=== PATIENT | male | born 1975 | race Caucasian/White ===

== ENCOUNTER 2017-07-28 15:33 | Emergency (ER) | payer BC ==
[2017-07-28] MEDS ORDERED: SODIUM CHLORIDE 0.9% 1,000 ML IV STA (17:31)
[2017-07-28] MEDS ORDERED: METOCLOPRAMIDE 5 MG/ML 2 ML VIAL IVP STA (17:31)
[2017-07-28] MEDS ORDERED: diphenhydrAMINE 50 MG/ML 1 ML VIAL IVP STA (17:31)
--- NOTE | 2017-07-28 17:39 | ED ---
General Adult HPI - General Chief complaint: Headache Stated complaint: Headache, Facial Numbness Time Seen by Provider: 07/28/17 17:15 Source: patient, RN notes reviewed Mode of arrival: ambulatory Limitations: no limitations - History of Present Illness Initial comments: Patient 42-year-old male presented to the emergency room today with chief complaint of a headache that started yesterday. Patient states that as a numbness and pressure like pain to the top and right side of his head. Patient does admit that he took ibuprofen for the pain yesterday which did not give much relief. he has not taken anything today. Does admit that he feels pain started back radiating up to the front. States very sensitive over the right christianity oral area. Patient denies any injury or trauma. Patient admits that he had some episodes of nausea vomiting yesterday. States at times still nauseous today. Patient denies any other complaints or symptoms. States never had similar headaches in the past. Patient denies any recent fever, chills, shortness of breath, chest pain, back pain, abdominal pain, numbness or tingling , dysuria or hematuria, constipation or diarrhea, visual changes, or any other complaints. - Related Data Home Medications Medication Instructions Recorded Confirmed Ibuprofen [Advil] 600 mg PO Q8HR PRN 07/28/17 07/28/17 Allergies Allergy/AdvReac Type Severity Reaction Status Date / Time meperidine HCl [From Demerol] Allergy Dyspnea Verified 07/28/17 17:16 Review of Systems ROS Statement: Those systems with pertinent positive or pertinent negative responses have been documented in the HPI. ROS Other: All systems not noted in ROS Statement are negative. Past Medical History Past Medical History: No Reported History History of Any Multi-Drug Resistant Organisms: None Reported Past Surgical History: Hernia Repair Past Psychological History: No Psychological Hx Reported Smoking Status: Never smoker Past Alcohol Use History: None Reported Past Drug Use History: None Reported General Exam - General Exam Comments Initial Comments: General: The patient is awake and alert, in no distress, and does not appear acutely ill. Eye: Pupils are equal, round and reactive to light, extra-ocular movements are intact. No nystagmus. There is normal conjunctiva bilaterally. No signs of icterus. Ears, nose, mouth and throat: There are moist mucous membranes and no oral lesions. Neck: The neck is supple, there is no tenderness or JVD. Negative Kernig's and Brudzinski's Cardiovascular: There is a regular rate and rhythm. No murmur, rub or gallop is appreciated. Respiratory: Lungs are clear to auscultation, respirations are non-labored, breath sounds are equal. No wheezes, stridor, rales, or rhonchi. Musculoskeletal: Normal ROM, no tenderness. Strength 5/5. Sensation intact. Pulses equal bilaterally 2+. Neurological: A&O x 3. CN II-XII intact, There are no obvious motor or sensory deficits. Coordination appears grossly intact. Speech is normal. Skin: Skin is warm and dry and no rashes or lesions are noted. tender palpation of the temp oral area. Psychiatric: Cooperative, appropriate mood & affect, normal judgment. Limitations: no limitations Course Vital Signs 07/28/17 07/28/17 15:48 17:45 Temperature 97.9 F Pulse Rate 63 59 L Respiratory 20 18 Rate Blood Pressure 135/88 132/68 O2 Sat by Pulse 99 99 Oximetry - Reevaluation(s) Reevaluation #1: 07/28/17 18:59 Patient reexamined at this time shows no signs of distress. He does admit that his headache has improved quite a bit. He states currently rates a 4/10 at this time. He was given Reglan, Benadryl and IV fluids. Patient's CT of the head and neck show no acute abnormalities. Patient's CBC in CMP currently reviewed and are unremarkable. Awaiting test results CRP and sed rate at this time. Medical Decision Making - Medical Decision Making Patient reexamined at this time shows no signs of distress. His CT is negative. Sed rate and CRP negative. Labs been reviewed unremarkable. Patient feeling much better after medications. It was discussed with patient about possible shingles rash does erupt. At this time patient will be discharged home advised to continue with his Advil for any rebound headache. - Lab Data Result diagrams: 07/28/17 17:50 07/28/17 17:50 Lab Results 07/28/17 07/28/17 Range/Units 17:50 17:50 WBC 7.4 (3.8-10.6) k/uL RBC 5.22 (4.30-5.90) m/uL Hgb 15.5 (13.0-17.5) gm/dL Hct 45.1 (39.0-53.0) % MCV 86.5 (80.0-100.0) fL MCH 29.8 (25.0-35.0) pg MCHC 34.4 (31.0-37.0) g/dL RDW 12.7 (11.5-15.5) % Plt Count 232 (150-450) k/uL Neutrophils % 76 % Lymphocytes % 16 % Monocytes % 6 % Eosinophils % 1 % Basophils % 0 % Neutrophils # 5.7 (1.3-7.7) k/uL Lymphocytes # 1.2 (1.0-4.8) k/uL Monocytes # 0.5 (0-1.0) k/uL Eosinophils # 0.1 (0-0.7) k/uL Basophils # 0.0 (0-0.2) k/uL ESR 9 (0-15) mm/hr Sodium 143 (137-145) mmol/L Potassium 4.3 (3.5-5.1) mmol/L Chloride 102 (98-107) mmol/L Carbon Dioxide 25 (22-30) mmol/L Anion Gap 16 mmol/L BUN 8 L (9-20) mg/dL Creatinine 0.80 (0.66-1.25) mg/dL Est GFR (CKD-EPI)AfAm >90 (>60 ml/min/1.73 sqM) Est GFR (CKD-EPI)NonAf >90 (>60 ml/min/1.73 sqM) Glucose 108 H (74-99) mg/dL Calcium 10.0 (8.4-10.2) mg/dL Total Bilirubin 0.5 (0.2-1.3) mg/dL AST 27 (17-59) U/L ALT 24 (21-72) U/L Alkaline Phosphatase 70 (38-126) U/L C-Reactive Protein <5.0 (<10.0) mg/L Total Protein 7.2 (6.3-8.2) g/dL Albumin 4.8 (3.5-5.0) g/dL Disposition Clinical Impression: Atypical migraine Disposition: HOME SELF-CARE Condition: Good Instructions: Migraine Headache (ED) Additional Instructions: Please use medication as discussed. Please follow-up with family doctor in the next 2 days of symptoms have not improved. Please return to emergency room if the symptoms increase or worsen or for any other concerns. Is patient prescribed a controlled substance at d/c from ED?: No Referrals: Bryn Banuelos MD [Primary Care Provider] - 1-2 days Time of Disposition: 19:48
[2017-07-28 17:46] VITALS: RESP 18
--- NOTE | 2017-07-28 18:15 | CT ---
EXAMINATION TYPE: CT brain salomón alaniz DATE OF EXAM: 07/28/2017 COMPARISON: NONE HISTORY: Right sided occipital area numbness, headache CT DLP: 2158 mGycm Automated exposure control for dose reduction was used. TECHNIQUE: CT scan of the head and cervical spine are performed without contrast. FINDINGS: Ventricles of normal size. There is no mass effect nor midline shift. There is no sign of intracranial hemorrhage. The calvarium is intact. Cervical vertebra show some straightening. There is mild anterior spurring at C5-6 C6-7 with minimal disc space narrowing. There is no compression fracture. The skull base is intact. Facet joints are in tact. IMPRESSION: Negative CT scan of the brain. Minor degenerative disc changes in the lower cervical spine. No fracture.
[2017-07-28 18:19] LABS: Basophils % (A) 0 %; Eosinophils # (A) 0.1 k/uL (0-0.7); Eosinophils % (A) 1 %; HCT 45.1 % (39.0-53.0); HGB 15.5 gm/dL (13.0-17.5); Lymphocytes # (A) 1.2 k/uL (1.0-4.8); Lymphocytes % (A) 16 %; MCH 29.8 pg (25.0-35.0); MCHC 34.4 g/dL (31.0-37.0); MCV 86.5 fL (80.0-100.0); Mean Platelet Volume 7.2; Monocytes # (A) 0.5 k/uL (0-1.0); Monocytes % (A) 6 %; Neutrophils # (A) 5.7 k/uL (1.3-7.7); Neutrophils % (A) 76 %; Platelet Count 232 k/uL (150-450); RBC 5.22 m/uL (4.30-5.90); RDW 12.7 % (11.5-15.5); WBC 7.4 k/uL (3.8-10.6)
[2017-07-28 18:31] LABS: ALT 24 U/L (21-72); AST 27 U/L (17-59); Albumin 4.8 g/dL (3.5-5.0); Alkaline Phosphatase 70 U/L (38-126); Anion Gap 16 mmol/L; Blood Urea Nitrogen 8 mg/dL (9-20); C Reactive Protein <5.0 mg/L (<10.0); Carbon Dioxide 25 mmol/L (22-30); Chloride 102 mmol/L (98-107); Glucose 108 mg/dL (74-99); Potassium 4.3 mmol/L (3.5-5.1); Sodium 143 mmol/L (137-145); Total Bilirubin 0.5 mg/dL (0.2-1.3); Total Protein 7.2 g/dL (6.3-8.2)
[2017-07-28] MEDS ORDERED: KETOROLAC 30 MG/ML 1 ML VIAL IVP STA (18:59)
[2017-07-28 19:25] LABS: Erythrocyte Sedimentation Rate 9 mm/hr (0-15)
[2017-07-28 20:15] VITALS: BP 137/66; PULSE 64; TEMP 98
== END 2017-07-28 20:23 | disposition home or self-care (01) ==
LOC: EC 15:33
DX: G43.909 Migraine, unspecified, not intractable, without status migrainosus (principal); Z88.5 Allergy status to narcotic agent
CPT/HCPCS: 36415; 80053; 85652; 85025; 86140; 72125; 70450; 99284; 96374; 96375 ×2; 96361 ×3; J1200; J2765; J1885

== ENCOUNTER → 2018-11-01 | Outpatient (CLI) | payer BC ==
--- NOTE | 2018-11-01 09:55 | US ---
EXAMINATION TYPE: US abdomen complete DATE OF EXAM: 11/01/2018 COMPARISON: NONE CLINICAL HISTORY: 43-year-old male R10.11 RUQ Pain, R07.9 Chest Pain. Epigastric pain. Limited exam d ue to overlying bowel gas TECHNIQUE: Multiple sonographic images of the abdomen are obtained. FINDINGS: EXAM MEASUREMENTS: Liver Length: 17.0 cm Gallbladder Wall: 0.1 cm CBD: 0.6 cm Spleen: 11.8 cm Right Kidney: 10.1 x 5.1 x 5.8 cm Left Kidney: 10.2 x 5.5 x 4.7 cm Pancreas: Obscured by bowel gas Liver: Diffusely heterogeneous. Portal vein appears prominent measuring 1.6 cm of questionable clini ricardo significance in the absence of portal venous hypertension. Gallbladder: wnl Evidence for sonographic Hadley's sign: No CBD: Measuring upper limits of normal. Distal portion obscured by bowel gas Spleen: wnl Right Kidney: No hydronephrosis. Left Kidney: No hydronephrosis. Upper IVC: wnl as visualized Abd Aorta: wnl as visualized IMPRESSION: 1. Borderline hepatomegaly (17.0 cm) with heterogeneous appearance to the liver. Correlate for underl leonel nonspecific hepatocellular disease. 2. Prominent size to the main portal vein at 1.6 cm is of questionable clinical significance in the a bsence of portal venous hypertension. Again, clinically correlate. 3. Bile duct borderline in caliber at 6 mm. Correlate with alkaline phosphatase and bilirubin levels to exclude early biliary obstruction.
--- NOTE | 2018-11-01 09:55 | XR ---
EXAMINATION TYPE: XR chest 2V DATE OF EXAM: 11/01/2018 COMPARISON: None HISTORY: 43-year-old male right upper quadrant and chest pain TECHNIQUE: Frontal and lateral views FINDINGS: Heart normal size. Aorta and pulmonary vasculature within normal limits. Strandy atelectasis in the l ower lungs. No consolidation or pleural effusion. IMPRESSION: No acute cardiopulmonary process.
--- NOTE | 2018-11-01 12:35 | ECHOS ---
STRESS ECHOCARDIOGRAM INDICATIONS: Chest pain. MEDICATIONS: Aspirin. BASELINE HEART RATE: 57 BASELINE BLOOD PRESSURE: 119/49 MAXIMUM HEART RATE: 160 MAXIMUM BLOOD PRESSURE: 197/83 85% MPHR: 150 100% MPHR: 177 METS: 11.9 MAXIMUM STAGE REACHED: 4 TOTAL EXERCISE TIME: 10:15 CLINICAL INFORMATION: Baseline EKG revealed normal sinus rhythm without significant ST changes. Patient walked on standard Fabian protocol for 10 minutes 15 seconds, achieved a maximal heart rate of 160 beats per minute, developed fatigue and shortness of breath but did not have any angina or arrhythmia. EKG did not reveal any ST-segment changes to indicate ischemia. By EKG criteria, this is an unremarkable stress test with good exercise capacity. Baseline echo images revealed normal wall motion and wall thickening of all segments. At peak exercise, there was good augmentation of different wall motion and wall thickening of all segments suggesting that there is no evidence of stress-induced ischemia on this study. FINAL IMPRESSION: 1. By EKG criteria, this is a negative stress test without any evidence of ischemia. Nonspecific upsloping ST-segment changes were noted. 2. Normal stress echocardiogram with excellent exercise capacity. There was no evidence of ischemia on this study. MMODL / IJN: [id number] /
== END | disposition home or self-care (01) ==
LOC: RADUSMAIN 08:20
PROVIDERS: ATTEND Family Medicine
DX: R06.09 Other forms of dyspnea (principal); R10.11 Right upper quadrant pain
CPT/HCPCS: 71046; 76700; 93351

== ENCOUNTER 2019-09-26 15:04 | Observation (INO) | payer BC ==
--- NOTE | 2019-09-26 15:28 | ED ---
General Adult HPI - General Chief complaint: Neuro Symptoms/Deficit Stated complaint: L Side Numbness Time Seen by Provider: 09/26/19 15:12 Source: patient Mode of arrival: ambulatory Limitations: no limitations - History of Present Illness Initial comments: 44-year-old male with history of previous shingles infection, lifelong non- smoker presenting for left facial left arm tingling. Patient states that Thursday of last week he developed a headache he states he had left-sided facial tingling at that time and symptoms felt similar to when he developed a herpes zoster infection. Patient states he also stated that he had some blurred vision in the left eye in comparison the right that has been intermittent since. Patient states he has had on-and-off headaches with associated vomiting. He states that he vomited on Thursday with a headache as well as . He states he does not currently have a headache. Patient denies any complete vision loss or visual field deficits denies diplopia. Patient denies any change the vision of the right eye. Patient denies experiencing the visual changes in the past. Patient denies noting any speech changes he denies any weakness of the upper or lower extremities states actually 7 hours ago after running he had the same tingling sensation that was found in the face and the left arm. He states that there is no sensation deficit or difference it just feels "shawn" patient denies neck pain, chest pain, back pain, SOB. Patient states that he has no been dizzy or felt presyncopal. Patient denies chest pressure, jaw pain or arm pain. Denies current nausea. Denies history of brain aneurysm, family history of brain aneursym or AVM. Family history of premature CAD. Patient has no additional complaints. BP elevated on arrival. I immediately after completion of history and exam, consulted my attending provider Dr Garcia. - Related Data Home Medications Medication Instructions Recorded Confirmed Aspirin EC [Ecotrin Low Dose] 81 mg PO DAILY 09/26/19 09/26/19 Multivitamins, Thera [Multivitamin 1 tab PO DAILY 09/26/19 09/26/19 (formulary)] Allergies Allergy/AdvReac Type Severity Reaction Status Date / Time meperidine HCl [From Demerol] Allergy Dyspnea Verified 09/26/19 17:03 Review of Systems ROS Statement: Those systems with pertinent positive or pertinent negative responses have been documented in the HPI. ROS Other: All systems not noted in ROS Statement are negative. Past Medical History Past Medical History: No Reported History Additional Past Medical History / Comment(s): shingles History of Any Multi-Drug Resistant Organisms: None Reported Past Surgical History: Hernia Repair Past Psychological History: No Psychological Hx Reported Smoking Status: Never smoker Past Alcohol Use History: Occasional Past Drug Use History: None Reported General Exam - General Exam Comments Initial Comments: General: The patient is awake and alert, in no distress Eye: +3 mm pupils are equal, round and reactive to light, extra-ocular mo vements are intact. No nystagmus. There is normal conjunctiva bilaterally. No signs of icterus. Ears, nose, mouth and throat: There are moist mucous membranes and no oral lesions. Neck: The neck is supple, there is no tenderness or JVD. Cardiovascular: There is a regular rate and rhythm. No murmur, rub or gallop is appreciated. Respiratory: Lungs are clear to auscultation, respirations are non-labored, breath sounds are equal. No wheezes, stridor, rales, or rhonchi. Gastrointestinal: Soft, non-distended, non-tender abdomen without masses or organomegaly noted. There is no rebound or guarding present. Musculoskeletal: Normal ROM, no tenderness. Strength 5/5. Sensation intact. Radial pulses equal bilaterally 2+. Neurological: A&O x 3. CN II-XII intact, memory intact to immediately, intermediate and vermin exterminator recall. Able to follow simple verbal. Able to name a common object (pen). High quality, labial (pa) and lingual (la) speech. Low quality posterior pharynx/larynx (ga) voice sounds. Able to express general knowledge. No hemineglect or inattention noted. Finger agnosia (-) and spatially oriented (identified L index finger touched R shoulder with L index finger). Light touch present over the face, chest, abdomen, back, UE bilaterally, and LE bilaterally. Able to localize point during point localization b/l and extinction. No visible bulk atrophy, hypertrophy, fasciculations, or myoclonus of the UE or LE b/l. Full PROM in UE and LE b/l. Bilateral muscle strength 5/5 for the following muscles: deltoid, biceps, triceps, brachioradialis, wrist extensors/flexor, hip flexor, hip abduc tors/adductors, hamstrings, quadriceps, feet dorsiflexors/plantar flexors. Finger to nose, finger to the examiners finger, and heel to samaniego coordinated and accurate b/l. Coordinated and even demonstration of hand flip, finger to thumb, and toe tap b/l. Gait is coordinated and even in stride.(-) Romberg. (-) pronator drift. No nuchal rigidity. Skin: Skin is warm and dry and no rashes or lesions are noted. Psychiatric: Cooperative, appropriate mood & affect, normal judgment. Limitations: no limitations Course Vital Signs 09/26/19 09/26/19 09/26/19 15:06 15:30 16:00 Temperature 98.5 F Pulse Rate 72 71 74 Respiratory 18 18 18 Rate Blood Pressure 154/103 161/96 149/71 O2 Sat by Pulse 99 97 98 Oximetry 09/26/19 09/26/19 09/26/19 16:30 17:00 17:30 Temperature Pulse Rate 63 61 57 L Respiratory 18 18 18 Rate Blood Pressure 127/86 118/77 115/62 O2 Sat by Pulse 97 97 97 Oximetry 09/26/19 18:00 Temperature Pulse Rate 71 Respiratory 18 Rate Blood Pressure 104/66 O2 Sat by Pulse 97 Oximetry - Reevaluation(s) Reevaluation #1: On reevaluation left are parathesias had resolved, face remains-- 09/26/19 1730 Reevaluation #2: Dr. Pierre was consulted in the ER, I spoke with her in person she states she will place order for MRI and see patient in the morning. 09/26/19 EKG Findings - EKG Comments: EKG Findings:: Ventricular rate 76 bpm, MS interval 172 ms, QRS jew 96 no seconds, QT/QTC 48/459 ms. This is normal sinus. There is no ST elevation or depression. Nonspecific to T wave abnormality otherwise normal appearing EKG Medical Decision Making - Medical Decision Making 44-year-old male presented for left face and arm paresthesia no loss of sensation or weakness. History of on-and-off headaches and some nausea. CT without contrast no acute abnormalities identified no abnormalities of the CT angiography such as aneurysm. Patient will have an MRI performed to rule out mass. Patient paresthesia left arm resolved. EKG no acute findings troponin negative patient denied any chest pain or shortness of breath. Patient is agreeable to admission for further evaluation and monitoring. Dr. Garcia is agreeable to care plan and admission. - Lab Data Result diagrams: 09/26/19 15:25 09/26/19 15:32 Lab Results 09/26/19 09/26/19 09/26/19 Range/Units 15:25 15:32 15:32 WBC 4.4 (3.8-10.6) k/uL RBC 4.86 (4.30-5.90) m/uL Hgb 14.6 (13.0-17.5) gm/dL Hct 44.7 (39.0-53.0) % MCV 92.0 (80.0-100.0) fL MCH 30.1 (25.0-35.0) pg MCHC 32.7 (31.0-37.0) g/dL RDW 12.5 (11.5-15.5) % Plt Count 168 (150-450) k/uL Neutrophils % 58 % Lymphocytes % 34 % Monocytes % 6 % Eosinophils % 1 % Basophils % 0 % Neutrophils # 2.5 (1.3-7.7) k/uL Lymphocytes # 1.5 (1.0-4.8) k/uL Monocytes # 0.3 (0-1.0) k/uL Eosinophils # 0.0 (0-0.7) k/uL Basophils # 0.0 (0-0.2) k/uL PT 10.0 (9.0-12.0) sec INR 1.0 (<1.2) APTT 22.8 (22.0-30.0) sec Sodium (137-145) mmol/L Potassium (3.5-5.1) mmol/L Chloride (98-107) mmol/L Carbon Dioxide (22-30) mmol/L Anion Gap mmol/L BUN (9-20) mg/dL Creatinine (0.66-1.25) mg/dL Est GFR (CKD-EPI)AfAm (>60 ml/min/1.73 sqM) Est GFR (CKD-EPI)NonAf (>60 ml/min/1.73 sqM) Glucose (74-99) mg/dL Calcium (8.4-10.2) mg/dL Total Bilirubin (0.2-1.3) mg/dL AST (17-59) U/L ALT (4-49) U/L Alkaline Phosphatase (38-126) U/L Troponin I (0.000-0.034) ng/mL Total Protein (6.3-8.2) g/dL Albumin (3.5-5.0) g/dL Urine Color Yellow Urine Appearance Clear (Clear) Urine pH 6.0 (5.0-8.0) Ur Specific [place] 1.005 (1.001-1.035) Urine Protein Negative (Negative) Urine Glucose (UA) Negative (Negative) Urine Ketones Negative (Negative) Urine Blood Negative (Negative) Urine Nitrite Negative (Negative) Urine Bilirubin Negative (Negative) Urine Urobilinogen <2.0 (<2.0) mg/dL Ur Leukocyte Esterase Negative (Negative) Urine RBC 1 (0-5) /hpf Urine Mucus Rare H (None) /hpf 09/26/19 09/26/19 Range/Units 15:32 15:32 WBC (3.8-10.6) k/uL RBC (4.30-5.90) m/uL Hgb (13.0-17.5) gm/dL Hct (39.0-53.0) % MCV (80.0-100.0) fL MCH (25.0-35.0) pg MCHC (31.0-37.0) g/dL RDW (11.5-15.5) % Plt Count (150-450) k/uL Neutrophils % % Lymphocytes % % Monocytes % % Eosinophils % % Basophils % % Neutrophils # (1.3-7.7) k/uL Lymphocytes # (1.0-4.8) k/uL Monocytes # (0-1.0) k/uL Eosinophils # (0-0.7) k/uL Basophils # (0-0.2) k/uL PT (9.0-12.0) sec INR (<1.2) APTT (22.0-30.0) sec Sodium 140 (137-145) mmol/L Potassium 3.8 (3.5-5.1) mmol/L Chloride 106 (98-107) mmol/L Carbon Dioxide 24 (22-30) mmol/L Anion Gap 10 mmol/L BUN 10 (9-20) mg/dL Creatinine 0.94 (0.66-1.25) mg/dL Est GFR (CKD-EPI)AfAm >90 (>60 ml/min/1.73 sqM) Est GFR (CKD-EPI)NonAf >90 (>60 ml/min/1.73 sqM) Glucose 104 H (74-99) mg/dL Calcium 9.6 (8.4-10.2) mg/dL Total Bilirubin 0.5 (0.2-1.3) mg/dL AST 59 (17-59) U/L ALT 64 H (4-49) U/L Alkaline Phosphatase 70 (38-126) U/L Troponin I <0.012 (0.000-0.034) ng/mL Total Protein 8.1 (6.3-8.2) g/dL Albumin 5.2 H (3.5-5.0) g/dL Urine Color Urine Appearance (Clear) Urine pH (5.0-8.0) Ur Specific [place] (1.001-1.035) Urine Protein (Negative) Urine Glucose (UA) (Negative) Urine Ketones (Negative) Urine Blood (Negative) Urine Nitrite (Negative) Urine Bilirubin (Negative) Urine Urobilinogen (<2.0) mg/dL Ur Leukocyte Esterase (Negative) Urine RBC (0-5) /hpf Urine Mucus (None) /hpf Disposition Clinical Impression: Arm paresthesia, left, Blurred vision, left eye, Facial paresthesia, Hx of headache Disposition: ADMITTED IP TO THIS [facility] Condition: Stable Is patient prescribed a controlled substance at d/c from ED?: No Time of Disposition: 17:01 Decision to Admit Reason: Admit from EC Decision Date: 09/26/19 Decision Time: 17:01
[2019-09-26 15:47] LABS: Color,Urine Yellow
[2019-09-26 15:48] LABS: Appearance,Urine Clear (Clear); Bilirubin,Urine Negative (Negative); Blood,Urine Negative (Negative); Glucose,Urine (UA) Negative (Negative); Ketones,Urine Negative (Negative); Leukocyte Esterase,Urine Negative (Negative); Mucus,Urine Rare /hpf; Nitrite,Urine Negative (Negative); Protein,Urine Negative (Negative); RBC,Urine 1 /hpf (0-5); Specific Gravity,Urine 1.005 (1.001-1.035); Urobilinogen,Urine <2.0 mg/dL (<2.0)
[2019-09-26 15:52] LABS: ALT 64 U/L (4-49); AST 59 U/L (17-59); African American GFR (CKD) >90 (>60 ml/min/1.73 sqM); Albumin 5.2 g/dL (3.5-5.0); Alkaline Phosphatase 70 U/L (38-126); Anion Gap 10 mmol/L; Blood Urea Nitrogen 10 mg/dL (9-20); Calcium 9.6 mg/dL (8.4-10.2); Carbon Dioxide 24 mmol/L (22-30); Chloride 106 mmol/L (98-107); Glucose 104 mg/dL (74-99); Non-African American GFR(CKD) >90 (>60 ml/min/1.73 sqM); Potassium 3.8 mmol/L (3.5-5.1); Sodium 140 mmol/L (137-145); Total Bilirubin 0.5 mg/dL (0.2-1.3); Total Protein 8.1 g/dL (6.3-8.2)
[2019-09-26 15:54] LABS: Partial Thromboplastin Time 22.8 sec (22.0-30.0)
[2019-09-26 16:07] LABS: Basophils % (A) 0 %; Eosinophils % (A) 1 %; HCT 44.7 % (39.0-53.0); HGB 14.6 gm/dL (13.0-17.5); Lymphocytes # (A) 1.5 k/uL (1.0-4.8); Lymphocytes % (A) 34 %; MCH 30.1 pg (25.0-35.0); MCHC 32.7 g/dL (31.0-37.0); Mean Platelet Volume 7.5; Monocytes # (A) 0.3 k/uL (0-1.0); Monocytes % (A) 6 %; Neutrophils # (A) 2.5 k/uL (1.3-7.7); Neutrophils % (A) 58 %; Platelet Count 168 k/uL (150-450); RBC 4.86 m/uL (4.30-5.90); RDW 12.5 % (11.5-15.5); WBC 4.4 k/uL (3.8-10.6)
--- NOTE | 2019-09-26 16:12 | CT ---
EXAMINATION TYPE: CT brain wo con for TPA DATE OF EXAM: 09/26/2019 COMPARISON: 07/28/2017 INDICATION: Left side facial numbness DLP: 1074.8 mGycm, Automated exposure control for dose reduction was used. CONTRAST: None CT of the brain is performed utilizing 3 mm thick sections through the posterior fossa and 3 mm thick sections through the remaining calvarium. Study is performed within 24 hours of arrival to the hosp [facility]. No abnormal hyperdensity is present to suggest an acute intracranial hemorrhage. No mass lesion is evident. No acute infarcts are evident. Ventricles and sulci are appropriate for the patient age. Paranasal sinuses and mastoid air cells within the [id number] are clear. Couple of subcutaneous nodules are within the scalp on the left temporal region. IMPRESSIONS: 1. No acute intracranial process.
--- NOTE | 2019-09-26 16:22 | XR ---
EXAMINATION TYPE: XR chest 2V DATE OF EXAM: 09/26/2019 COMPARISON: 11/01/2018 INDICATION: Left arm paresthesia TECHNIQUE: Frontal and lateral views of the chest are obtained. FINDINGS: The heart size is normal. The pulmonary vasculature is normal. The lungs are clear. IMPRESSION: 1. No acute pulmonary process.
--- NOTE | 2019-09-26 16:24 | CT ---
EXAMINATION TYPE: CT angio head neck DATE OF EXAM: 09/26/2019 HISTORY: left side facial numbness COMPARISON: None CT DLP: 879.3 mGycm. Automated Exposure Control for Dose Reduction was Utilized. TECHNIQUE: CTA scan of the neck is performed with IV Contrast, patient injected with 65 mL of Isovue 370, axial images are obtained, coronal and sagittal reformatted images are reviewed. Three-D recons tructed images are created on an independent workstation and reviewed. Source images are reviewed. FINDINGS: Carotid/Vascular Structures: There is a three-vessel arch. Common carotid arteries bifurcate normally into internal and external carotid arteries. Internal carotid arteries are patent to the level of th e skull base. Vertebral arteries are codominant and are patent to the skull base. Cervical of Stover: Vertebral basilar system appears normal. Posterior cerebral vasculature is unrema rkable. Internal carotid arteries bifurcate normally into A1 and M1 segments. A2 segments are normal. The anterior communicating artery is patent. Right posterior communicating artery is patent. Left po sterior indicating artery is absent IMPRESSION: 1. No flow-limiting stenosis bilateral carotid bifurcations. 2. Normal absentee-[place] of [place]
[2019-09-26] MEDS ORDERED: NALOXONE 0.4 MG/ML 1 ML VIAL IV PRN (16:59)
[2019-09-26] MEDS ORDERED: SODIUM CHLORIDE 0.9% 1,000 ML IV SCH (17:00)
[2019-09-26 21:20] LABS: ALT 60 U/L (4-49); AST 56 U/L (17-59); African American GFR (CKD) >90 (>60 ml/min/1.73 sqM); Alkaline Phosphatase 66 U/L (38-126); Anion Gap 9 mmol/L; Blood Urea Nitrogen 12 mg/dL (9-20); Calcium 9.6 mg/dL (8.4-10.2); Carbon Dioxide 25 mmol/L (22-30); Chloride 106 mmol/L (98-107); Glucose 102 mg/dL (74-99); Non-African American GFR(CKD) >90 (>60 ml/min/1.73 sqM); Potassium 4.1 mmol/L (3.5-5.1); Sodium 140 mmol/L (137-145); Total Bilirubin 0.4 mg/dL (0.2-1.3); Total Protein 7.7 g/dL (6.3-8.2)
--- NOTE | 2019-09-26 22:48 | HP ---
HISTORY AND PHYSICAL DATE OF SERVICE: 09/26/2019 CHIEF COMPLAINTS: Tingling and numbness of the left side of the face and left arm. HISTORY OF PRESENT ILLNESS: This 44-year-old gentleman with a past medical history of shingles and no other significant medical history, being followed by Dr. Bryn Banuelos in the outpatient setting, was complaining of left-sided facial numbness and tingling and also left upper arm numbness. The patient also a headache which radiated from the neck upwards. The patient came to [facility] and was admitted for evaluation and treatment. There is no history of any fever, rigors or chills. Initial CT scan is negative at this time. MRI of the brain and cervical spine has been ordered. Neurology is also following the patient. ALT is mildly elevated at 64. PAST MEDICAL HISTORY: History of shingles, history of hernia repair. MEDICATIONS: Medications prior to admission include vitamins 1 p.o. daily, Ecotrin 81 mg daily. ALLERGIES: DEMEROL. FAMILY HISTORY: No history of strokes or heart disease in the family. SOCIAL HISTORY: No history of smoking or alcohol intake. REVIEW OF SYSTEMS: ENT: As mentioned earlier. CARDIOVASCULAR SYSTEM: No angina, palpitations. RESPIRATORY SYSTEM: No cough, hemoptysis. GI: No nausea, vomiting. : No dysuria or retention. NERVOUS SYSTEM: As mentioned earlier. ALLERGY/IMMUNOLOGY: No asthma, hayfever. MUSCULOSKELETAL: As mentioned earlier. HEMATOLOGY/ONCOLOGY: No history of anemia. ENDOCRINE: No history of diabetes, hypothyroidism. CONSTITUTIONAL: As mentioned earlier. DERMATOLOGY: Negative. RHEUMATOLOGY: Negative. PSYCHIATRY: As mentioned earlier. PHYSICAL EXAMINATION: Patient alert and oriented x3. Pulse 67, blood pressure 115/66, respiration 17, temperature normal, pulse ox 96% on room air. HEENT: Conjunctivae normal. Oral mucosa moist. NECK: No jugular venous distention. No carotid bruit. No lymph node enlargement. CARDIOVASCULAR SYSTEM: S1, S2 muffled. No S3. No S4. RESPIRATORY SYSTEM: Breath sounds diminished at the bases. No rhonchi. No crackles. ABDOMEN: Soft, non-tender. No mass palpable. LEGS: No edema. No swelling. NERVOUS SYSTEM: Higher functions as mentioned earlier. Cranial nerves: minimal facial numbness on the left side of the face. Otherwise, no other focal motor no cerebellar dysfunction. Gait is normal. SKIN: No ulcer, rash, bleeding. JOINTS: No active deforming arthropathy. LYMPHATICS: No lymph node palpable in neck, axillae or groin. LABS: CBC within normal limits and glucose 104. ALT 64. ASSESSMENT: 1. Left-sided facial and upper arm numbness. Rule out transient ischemic attack. 2. Increased elevated ALT. 3. History of shingles. 4. History of hernia repair. 5. FULL CODE. RECOMMENDATIONS AND DISCUSSION: In this 44-year-old gentleman who presented with multiple medical issues, at this time I recommend to continue current medications, continue symptomatic treatment. Otherwise, we will resume the home medications. Antiplatelet agents. MRI. Will repeat labs tomorrow. COVID has been requested. Prognosis guarded because of multiple complex medical issues. Further recommendations to follow. A copy of this dictation is being forwarded to Dr. Bryn Banuelos, who is the primary physician. MMSANTINOL / LIANAN: [id number] / MTDD
[2019-09-27 04:22] VITALS: RESP 16
[2019-09-27 07:30] LABS: Basophils % (A) 0 %; Eosinophils # (A) 0.1 k/uL (0-0.7); Eosinophils % (A) 2 %; HCT 44.7 % (39.0-53.0); HGB 14.2 gm/dL (13.0-17.5); Lymphocytes # (A) 1.7 k/uL (1.0-4.8); Lymphocytes % (A) 43 %; MCH 29.9 pg (25.0-35.0); MCHC 31.8 g/dL (31.0-37.0); MCV 94.1 fL (80.0-100.0); Mean Platelet Volume 7.3; Monocytes # (A) 0.3 k/uL (0-1.0); Monocytes % (A) 7 %; Neutrophils # (A) 1.9 k/uL (1.3-7.7); Neutrophils % (A) 46 %; Platelet Count 168 k/uL (150-450); RBC 4.75 m/uL (4.30-5.90); RDW 12.7 % (11.5-15.5)
[2019-09-27 08:40] VITALS: BP 114/65; PULSE 68; TEMP 98.6
[2019-09-27] MEDS ORDERED: ASPIRIN 81 MG PO SCH (09:00)
[2019-09-27] MEDS ORDERED: MULTIVITAMINS, THERA 1 EACH TAB PO SCH (09:00)
--- NOTE | 2019-09-27 11:24 | MR ---
EXAMINATION TYPE: MR brain wo/w cspine wo DATE OF EXAM: 09/27/2019 COMPARISON: CT brain from yesterday. CT brain and cervical spine July 28, 2017. HISTORY: Lt sided head/facial/arm numbness, neck pain/pressure, worsens throughout the day TECHNIQUE: Multiplanar, multisequence images of the brain and brainstem is performed without and with IV contras t, utilizing 9 mL intravenous Gadavist . FINDINGS: Diffusion weighted images demonstrate no evidence of a recent infarct or other diffusion ab normality. There is no asymmetric extra-axial fluid collection. Rare T2 hyperintense focus for refer ence to 3 mm right frontal lesion axial image 17. Less than 3 tiny lesions are present. The ventricul ar system and cisternal spaces are normal in size and appearance. The brain volume is age appropriat e. Midline structures demonstrate normal morphology. The craniocervical junction appears within normal limits. Post contrast images demonstrate no abnormal enhancement. The dural venous sinuses appear pa tent. The visualized sinuses are clear and the globes are intact. Nasal septum is deviated to the lef t of midline. IMPRESSION: No MRI evidence for recent infarct. Minimal nonspecific white matter changes. No suspicio us enhancement. C-SPINE: FINDINGS: Sagittal images of the cervical spine show the craniocervical junction to remain within nor mal limits. The cervical and upper thoracic spinal cord is normal in course, caliber, and signal. V ertebral alignment remains satisfactory. The vertebral body heights are normal. Mild disc space narr owing and anterior spurring C5-C6 level. Mild anterior spurring. Hemangioma anterior T2 vertebra note d. Axial images at C2-C3 level are within normal limits. Axial images at C3-C4 level shows left-sided uncovertebral spurring causing asymmetric [id number] te left-sided neural foraminal narrowing. Axial images at C4-C5 level are within normal limits. Axial images show mild broad-based posterior disc protrusion at C5-C6 level minimally effacing anteri or thecal sac. There is mild to moderate left neural foraminal narrowing due to uncovertebral facet s purring. Axial images at C6-C7 level shows mild broad-based posterior disc protrusion with right foraminal spu r disc complex, effacing anterior thecal sac and causing asymmetric moderate right-sided neural filipe inal narrowing. Axial images at C7-T1 level are within normal limits. IMPRESSION: Some mild multilevel degenerative changes in the cervical spine as detailed above.
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
--- NOTE | 2019-09-28 06:20 | DS ---
DISCHARGE SUMMARY DATE OF SERVICE: 09/27/2019. FINAL DIAGNOSES: 1. Left-sided facial and upper arm numbness. Rule out cervical degenerative joint disease. 2. Increased elevated ALT. 3. History of shingles. 4. History of hernia repair. 5. FULL CODE. DISCHARGE DISPOSITION: The patient will be discharged in stable condition with guarded prognosis. HISTORY OF PRESENT ILLNESS: This 44-year-old gentleman presented with left-sided facial and upper arm numbness was being evaluated, cervical degenerative joint disease was suspected. Neurology saw the patient. Recommended outpatient followup. Brain MRI was done, did not show any evidence of any stroke at this time. Recommended close outpatient followup and as well as the possibly orthopedic evaluation. On exam, vitals are stable. CARDIOVASCULAR: S1, S2 muffled. ABDOMEN: Soft. NERVOUS SYSTEM: No focal deficits. Neurovascular workup was basically negative. DISCHARGE ADVICE: 1. Diet is cardiac. 2. Activity limited until followup. 3. Follow up with Dr. Bryn Banuelos in 2 to 3 days. Medications will be: 1. Ecotrin 81 mg daily. 2. Multivitamins one p.o. daily. Orthopedic Surgery eval per Dr. Bryn Banuelos for severe cervical degenerative joint disease. MMODL / IJN: [id number] / MTDD
--- NOTE | 2019-09-29 07:29 | ECHOF ---
Referral Reason:Stroke MEASUREMENTS -------- HEIGHT: 172.7 cm WEIGHT: 93.0 kg BP: RVIDd: 3.4 cm (< 3.3) IVSd: 1.2 cm (0.6 - 1.1) LVIDd: 4.3 cm (3.9 - 5.3) LVPWd: 1.4 cm (0.6 - 1.1) IVSs: 1.5 cm LVIDs: 2.9 cm LVPWs: 1.4 cm LAESV Index (A-L): 15.17 ml/m Ao Diam: 3.1 cm (2.0 - 3.7) AV Cusp: 1.5 cm (1.5 - 2.6) MV EXCURSION: 26.117 mm (> 18.000) MV EF SLOPE: 102 mm/s (70 - 150) EPSS: 0.2 cm MV E Hank: 0.72 m/s MV DecT: 153 ms MV A Hank: 0.71 m/s MV E/A Ratio: 1.01 RAP: 5.00 mmHg RVSP: 27.63 mmHg FINDINGS -------- This was a technically adequate study. The left ventricular size is normal. There is mild concentric left ventricular hypertrophy. Overa ll left ventricular systolic function is normal with, an EF between 60 - 65 %. The diastolic fillin g pattern is normal for the age of the patient 9.18. The right ventricle is mildly enlarged. Normal LA size by volume 22+/-6 ml/m2. The right atrial size is normal. Interatrial and interventricular septum intact. The aortic valve is trileaflet and appears structurally normal. Trace amount of aortic regurgitatio n. There is no evidence of aortic stenosis. There is trace mitral regurgitation. Trace tricuspid regurgitation present. There is no evidence of pulmonary hypertension. The right ventricular systolic pressure, as measured by Doppler, is 27.63mmHg. Trace/mild (physiologic) pulmonic regurgitation. The aortic root size is normal. Normal inferior vena cava with normal inspiratory collapse consistent with estimated right atrial pre ssure of 5 mmHg. There is no pericardial effusion. CONCLUSIONS -------- 1. This was a technically adequate study. 2. The left ventricular size is normal. 3. There is mild concentric left ventricular hypertrophy. 4. Overall left ventricular systolic function is normal with, an EF between 60 - 65 %. 5. The diastolic filling pattern is normal for the age of the patient 9.18 6. The right ventricle is mildly enlarged. 7. Normal LA size by volume 22+/-6 ml/m2. 8. The right atrial size is normal. 9. Interatrial and interventricular septum intact. 10. The aortic valve is trileaflet and appears structurally normal. 11. Trace amount of aortic regurgitation. 12. There is no evidence of aortic stenosis. 13. There is trace mitral regurgitation. 14. Trace tricuspid regurgitation present. 15. There is no evidence of pulmonary hypertension. 16. The right ventricular systolic pressure, as measured by Doppler, is 27.63mmHg. 17. Trace/mild (physiologic) pulmonic regurgitation. 18. The aortic root size is normal. 19. Normal inferior vena cava with normal inspiratory collapse consistent with estimated right atrial pressure of 5 mmHg. 20. There is no pericardial effusion. DISTRIBUTION ANALYST: Rachel Jenkins RDCS
== END 2019-09-27 16:36 | disposition home or self-care (01) ==
LOC: EC 15:04 → 3SCARD 17:25
PROVIDERS: ADMIT Hospitalist; ATTEND Hospitalist
DX: R20.2 Paresthesia of skin (principal); R20.0 Anesthesia of skin; R51 Headache; R11.0 Nausea; H53.8 Other visual disturbances; R74.0 Nonspecific elevation of levels of transaminase and lactic acid dehydrogenase [LDH]; M50.222 Other cervical disc displacement at C5-C6 level; M46.02 Spinal enthesopathy, cervical region; M48.02 Spinal stenosis, cervical region; R61 Generalized hyperhidrosis; M54.30 Sciatica, unspecified side; D18.09 Hemangioma of other sites; Z03.818 Encounter for observation for suspected exposure to other biological agents ruled out; Z79.82 Long term (current) use of aspirin; Z88.5 Allergy status to narcotic agent; Z87.891 Personal history of nicotine dependence; Z87.828 Personal history of other (healed) physical injury and trauma; Z86.19 Personal history of other infectious and parasitic diseases; Z98.890 Other specified postprocedural states; Z82.49 Family history of ischemic heart disease and other diseases of the circulatory system; Z80.42 Family history of malignant neoplasm of prostate; Z80.3 Family history of malignant neoplasm of breast; Z83.49 Family history of other endocrine, nutritional and metabolic diseases
CPT/HCPCS: 99285; 36415; 93005; 93306; 80053; 84484; 85025 ×2; 85610; 85730; 81003; 71046; 70496; 70450; 70498; 70553; 72141; G0378 ×2; U0003; A9585; Q9967

== ENCOUNTER 2020-05-26 09:35 | Emergency (ER) | payer BC ==
[2020-05-26 09:39] VITALS: BP 151/79; PULSE 89; RESP 16; TEMP 97.8
--- NOTE | 2020-05-26 09:59 | ED ---
General Adult HPI - General Chief complaint: Extremity Problem,Nontraumatic Stated complaint: rt leg pain, poss DVT Time Seen by Provider: 05/26/20 09:35 Source: patient, RN notes reviewed, old records reviewed Mode of arrival: ambulatory Limitations: no limitations - History of Present Illness Initial comments: This is a 45-year-old male comes in complaining of right lateral posterior knee discomfort. Patient states she was doing quite a bit of driving lately and he was concerned that he might have a clot in the leg. Patient denies any lower leg swelling or redness per patient denies any calf tenderness. Patient states the area is tender just in the posterior aspect of his knee a little lateral. Patient states if he presses that he can reproduce the pain. Patient is very concerned about a clot. Patient denies any difficulty breathing shortness breath per patient denies any chest pain. Patient denies any recent fever chills or cough. Patient denies any trauma to the leg. - Related Data Home Medications Medication Instructions Recorded Confirmed Aspirin EC [Ecotrin Low Dose] 81 mg PO DAILY 09/26/19 09/26/19 Multivitamins, Thera [Multivitamin 1 tab PO DAILY 09/26/19 09/26/19 (formulary)] Previous Rx's Medication Instructions Recorded Ibuprofen [Motrin] 600 mg PO Q6HR PRN #20 tab 05/26/20 Allergies Allergy/AdvReac Type Severity Reaction Status Date / Time meperidine HCl [From Demerol] Allergy Dyspnea Verified 05/26/20 09:35 Review of Systems ROS Statement: Those systems with pertinent positive or pertinent negative responses have been documented in the HPI. ROS Other: All systems not noted in ROS Statement are negative. Past Medical History Past Medical History: No Reported History Additional Past Medical History / Comment(s): shingles History of Any Multi-Drug Resistant Organisms: None Reported Past Surgical History: Hernia Repair Past Anesthesia/Blood Transfusion Reactions: No Reported Reaction Past Psychological History: No Psychological Hx Reported Smoking Status: Never smoker Past Alcohol Use History: Occasional Past Drug Use History: None Reported - Past Family History Father Family Medical History: Cancer, Myocardial Infarction ([place]) Additional Family Medical History / Comment(s): at age 53- prostate cancer Mother Family Medical History: Myocardial Infarction ([place]) General Exam - General Exam Comments Initial Comments: GENERAL Patient is well-developed and well-nourished. Patient is in mild distress. EYES Patient's pupils are equal and round. Extraocular motion is intact SKIN Unremarkable NEURO The patient is alert and oriented 3 PYSCH Patient has normal interpersonal interactions. MUSCULOSKELETAL Patient's right posterior lateral aspect of the knee is tender to palpation there is no calf tenderness is no swelling there is no redness Limitations: no limitations Course Vital Signs 05/26/20 09:36 Temperature 97.8 F Pulse Rate 89 Respiratory 16 Rate Blood Pressure 151/79 O2 Sat by Pulse 99 Oximetry Medical Decision Making - Medical Decision Making Ultrasound for DVT was negative for DVT Disposition Clinical Impression: Neuralgia of right perineal nerve Disposition: HOME SELF-CARE Instructions (If sedation given, give patient instructions): Leg Pain (ED) Additional Instructions: Patient should take Motrin when necessary for pain. Prescriptions: Ibuprofen [Motrin] 600 mg PO Q6HR PRN #20 tab PRN Reason: For pain Is patient prescribed a controlled substance at d/c from ED?: No Referrals: Bryn Banuelos MD [Primary Care Provider] - 1-2 days Time of Disposition: 11:16
--- NOTE | 2020-05-26 11:59 | US ---
EXAMINATION TYPE: US venous doppler duplex LE RT DATE OF EXAM: 05/26/2020 9:48 AM COMPARISON: NONE CLINICAL HISTORY: leg pain. Pain SIDE PERFORMED: TECHNIQUE: The lower extremity deep venous system is examined utilizing real time linear array sonog lisa with graded compression, doppler sonography and color-flow sonography. VESSELS IMAGED: Common Femoral Vein Deep Femoral Vein Greater Saphenous Vein * Femoral Vein Popliteal Vein Small Saphenous Vein * Proximal Calf Veins (* superficial vessels) Right Leg: Negative for DVT IMPRESSION: No evidence for DVT
== END 2020-05-26 11:22 | disposition home or self-care (01) ==
LOC: EC 09:35
DX: R10.2 Pelvic and perineal pain (principal); Z79.82 Long term (current) use of aspirin; Z88.5 Allergy status to narcotic agent
CPT/HCPCS: 99284

== ENCOUNTER 2021-05-17 23:34 | Emergency (ER) | payer BC ==
[2021-05-18 00:11] VITALS: BP 138/90; PULSE 77; RESP 20; TEMP 98
--- NOTE | 2021-05-18 01:11 | CT ---
EXAMINATION TYPE: CT brain cspine wo con DATE OF EXAM: 05/18/2021 COMPARISON: 09/26/2019 and 07/28/2017 HISTORY: fall, head injury, positive LOC CT DLP: 1294.6 mGycm Automated exposure control for dose reduction was used. Ventricles and sulci appear normal. There is no mass effect or midline shift. There is no evidence of intracranial hemorrhage. There is subcutaneous rounded calcification measuring 1 cm of the left fron jeanne scalp consistent with calcifying sebaceous cyst. The skull base is intact. There is normal aerati on of the mastoid sinuses. The cervical vertebra have normal alignment. Disc spaces are fairly normal. There is minor spurring a nteriorly at C5-6 and C6-7. Facet joints are intact. The skull base is intact. IMPRESSION: Minor degenerative changes in the lower cervical spine. No fracture. No change. Negative CT scan of the brain. No change.
--- NOTE | 2021-05-18 01:17 | CT ---
EXAMINATION TYPE: CT facial bones wo con DATE OF EXAM: 05/18/2021 COMPARISON: None HISTORY: fall, head injury, positive LOC CT DLP: 1294.6 mGycm Automated exposure control for dose reduction was used. Images obtained from the bottom of the mandible to the top of the frontal sinuses without contrast. The mandibular ring is intact. The temporomandibular joints are intact. Zygomatic arches appear kristel l. Nasal bone is intact. The maxilla is intact. There is no evidence of orbital mass. Orbital margins are intact. There is no evidence of orbital blowout fracture. There is normal aeration of the parana feng sinuses. There is normal aeration of the mastoid sinuses. There is no bony destructive process. IMPRESSION: Negative CT scan of the facial bones. No fracture.
--- NOTE | 2021-05-18 03:43 | ED ---
General Adult HPI - General Chief complaint: Head Injury Stated complaint: Fall, Head Injury, +LOC Time Seen by Provider: 05/18/21 03:33 Source: patient Mode of arrival: ambulatory Limitations: no limitations - History of Present Illness Initial comments: Dictation was produced using [employer] dictation software. please excuse any grammatical, word or spelling errors. Chief Complaint: 46-year-old male presents to the emergency room for headache injury History of Present Illness: 46-year-old male who was playing with his dogs in his basement earlier this evening. States that he tripped over one of the dogs and landed on his head. Patient denies any loss of consciousness however at the bedside reports that he was knocked out for a couple minutes. Next thing he remembers he is being bit in the face by his dog. Patient has some mild right-sided head pain. Patient has no medical problem states no anticoagulation medications. Patient denies any numbness tingling or paresthesias. The ROS documented in this emergency department record has been reviewed and confirmed by me. Those systems with pertinent positive or negative responses have been documented in the HPI. All other systems are other negative and/or noncontributory. PHYSICAL EXAM: General Impression: Alert and oriented x3, not in acute distress HEENT: Mild bruising to the right temporal area, extra-ocular movements intact, pupils equal and reactive to light bilaterally, mucous membranes moist, no hemotympanum Cardiovascular: Heart regular rate and rhythm Chest: Able to complete full sentences, no retractions, no tachypnea Abdomen: abdomen soft, non-tender, non-distended, no organomegaly Musculoskeletal: Pulses present and equal in all extremities, no peripheral edema Motor: no focal deficits noted Neurological: CN II-XII grossly intact, no focal motor or sensory deficits noted Skin: Intact with no visualized rashes Psych: Normal affect and mood ED course: 46-year-old male presents to the emergency Department after head injury. Apparently he loss consciousness. As upon arrival are within acceptable limits. Computed tomography scan of the head, C-spine and face was ordered in triage. CT imaging showed no acute processes or traumatic injuries. Patient observed in the emergency department for proximally 4 hours. His reevaluated at bedside at 3:45 AM found to be stable medical condition. Patient be discharged. Return precautions discussed. - Related Data Home Medications Medication Instructions Recorded Confirmed Aspirin EC [Ecotrin Low Dose] 81 mg PO DAILY 09/26/19 09/26/19 Multivitamins, Thera [Multivitamin 1 tab PO DAILY 09/26/19 09/26/19 (formulary)] Previous Rx's Medication Instructions Recorded Ibuprofen [Motrin] 600 mg PO Q6HR PRN #20 tab 05/26/20 Allergies Allergy/AdvReac Type Severity Reaction Status Date / Time meperidine HCl [From Demerol] Allergy Dyspnea Verified 05/18/21 00:08 Review of Systems ROS Statement: Those systems with pertinent positive or pertinent negative responses have been documented in the HPI. ROS Other: All systems not noted in ROS Statement are negative. Past Medical History Past Medical History: No Reported History Additional Past Medical History / Comment(s): shingles History of Any Multi-Drug Resistant Organisms: None Reported Past Surgical History: Hernia Repair Past Anesthesia/Blood Transfusion Reactions: No Reported Reaction Past Psychological History: No Psychological Hx Reported Smoking Status: Never smoker Past Alcohol Use History: Occasional Past Drug Use History: None Reported - Past Family History Father Family Medical History: Cancer, Myocardial Infarction ([place]) Additional Family Medical History / Comment(s): at age 53- prostate cancer Mother Family Medical History: Myocardial Infarction ([place]) General Exam Limitations: no limitations Course Vital Signs 05/18/21 00:08 Temperature 98.0 F Pulse Rate 77 Respiratory 20 Rate Blood Pressure 138/90 O2 Sat by Pulse 99 Oximetry Disposition Clinical Impression: Closed head injury Disposition: HOME SELF-CARE Condition: Fair Instructions (If sedation given, give patient instructions): Concussion (ED) Is patient prescribed a controlled substance at d/c from ED?: No Referrals: Bryn Banuelos MD [Primary Care Provider] - 1-2 days
== END 2021-05-18 03:57 | disposition home or self-care (01) ==
LOC: EC 23:34
DX: S00.83XA Contusion of other part of head, initial encounter (principal); Z79.82 Long term (current) use of aspirin; W01.0XXA Fall on same level from slipping, tripping and stumbling without subsequent striking against object, initial encounter
CPT/HCPCS: 70450; 70486; 72125; 99284